=== PATIENT | female | born 1935 | race Caucasian/White ===

== ENCOUNTER 2016-08-07 15:55 | Inpatient (IN) | payer MEDICARE, OTHER ==
[~2016-08-07] VITALS: Ht 160 cm; Wt 56.2 kg
[~2016-08-07 15:55] MED LIST: ASPIRIN 32325 MG/TA1 PO; ASPIRIN 32325 MG/TAB PO; ASPIRIN E.C. 8181 MG PO; CHLORELLA PO; EFFEXOR XR75 MG/CAP PO; ELIQUIS 5MG PO; FORT1000TA PO; HUMALOG PEN100 U/ML SQ; HUMULIN N 10100 U/ML SC; INSLANT SQ; LIPITOR 80MG80 MG PO; OMEGA-3 FISH1000 MG PO; TOPROL XL100 MG PO; TYLENOL 325MG325 MG PO; VENLAFAXINE225 MG PO; ZOLOFT 100MG100 MG PO
[2016-08-07 17:41] VITALS: BP 152/76; PULSE 68; TEMP 98.1
[2016-08-07 19:52] VITALS: BP 128/63; PULSE 95; TEMP 98.5
[2016-08-08] VITALS (7 sets, daily range): BP systolic 123–146; BP diastolic 41–82; PULSE 51–119; TEMP 97.6–98.7
[2016-08-08 08:07] LABS: CALCIUM 8.8 mg/dL (8.4-10.2); POTASSIUM 3.7 mmol/L (3.4-5.0)
[2016-08-08 08:11] LABS: MEAN CELL VOLUME 100 fl (80.0-100.0); MEAN CORPUSCULAR HGB CONC 32 g/dl (33.0-37.0); MEAN PLATELET VOLUME 10.3 fl (7.4-10.4); PLATELET COUNT 142 K/mm3 (130-400); REDCELL DISTRIBUTION WIDTH-CV 13.2 % (11.5-14.5); WHITE BLOOD COUNT 4.2 K/mm3 (4.8-10.8)
[2016-08-08 08:25] LABS: CREATININE, serum 0.84 mg/dL (0.52-1.25)
[2016-08-08 08:27] LABS: HEMATOCRIT 31.9 % (37.0-47.0); HEMOGLOBIN 10.3 g/dl (12.5-16.0); MEAN CORPUSCULAR HEMOGLOBIN 32 pg (27.0-31.0)
[2016-08-08 18:19] LABS: PROLACTIN 11.7 ng/mL (3.0-18.6)
[2016-08-09 03:41] VITALS: BP 145/64; PULSE 77; TEMP 98
[2016-08-09 09:21] VITALS: BP 137/56; PULSE 70; TEMP 98.1
[2016-08-09] MEDS ORDERED: ELIQUIS 5MG PO ×2 (11:53→11:54)
[2017-01-03] MEDS ORDERED: ASPIRIN 81M81 MG/TA2 PO (16:34)
[2017-01-03] MEDS ORDERED: HUMALOG PEN100 U/ML SQ (16:37)
== END 2016-08-09 12:42 | disposition home or self-care (01) | DRG 69 ==
LOC: MEDICAL 15:55
PROVIDERS: Internal Medicine
DX: G45.9 Transient cerebral ischemic attack, unspecified (principal); E43 Unspecified severe protein-calorie malnutrition; I48.91 Unspecified atrial fibrillation; I10 Essential (primary) hypertension; Z66 Do not resuscitate; G47.33 Obstructive sleep apnea (adult) (pediatric); E78.5 Hyperlipidemia, unspecified; R47.81 Slurred speech; Z86.73 Personal history of transient ischemic attack (TIA), and cerebral infarction without residual deficits; Z79.2 Long term (current) use of antibiotics; Z79.4 Long term (current) use of insulin; Z68.21 Body mass index [BMI] 21.0-21.9, adult
CPT/HCPCS: 99223-AI; 99239; G0378; G0379; J1815

== ENCOUNTER 2016-10-24 19:53 | Emergency (ER) | payer MEDICARE ==
[~2016-10-24] VITALS: Ht 160 cm; Wt 54.5 kg
[2016-10-24 19:57] VITALS: TEMP 97.7
[2016-10-24] MEDS ORDERED: ELIQUIS 5MG PO (20:17)
[2016-10-24 21:22] VITALS: BP 118/78; PULSE 84
[2017-01-03] MEDS ORDERED: ASPIRIN 81M81 MG/TA2 PO (16:34)
[2017-01-03] MEDS ORDERED: HUMALOG PEN100 U/ML SQ (16:37)
== END 2016-10-24 21:23 | disposition home or self-care (01) ==
LOC: COL.ER 19:53
DX: S52.591A Other fractures of lower end of right radius, initial encounter for closed fracture (principal); E11.9 Type 2 diabetes mellitus without complications; I10 Essential (primary) hypertension; I25.2 Old myocardial infarction; F32.9 Major depressive disorder, single episode, unspecified; Z79.4 Long term (current) use of insulin; Z79.82 Long term (current) use of aspirin; Z79.84 Long term (current) use of oral hypoglycemic drugs; Z86.73 Personal history of transient ischemic attack (TIA), and cerebral infarction without residual deficits; Z86.69 Personal history of other diseases of the nervous system and sense organs; W18.39XA Other fall on same level, initial encounter; Y93.01 Activity, walking, marching and hiking

== ENCOUNTER 2017-01-04 01:00 | Emergency (ER) | payer MEDICARE ==
[~2017-01-04] VITALS: Ht 160 cm; Wt 54.5 kg
[~2017-01-04 01:00] MED LIST changes: +ASPIRIN 81M81 MG/TA2 PO
[2017-01-04 01:02] VITALS: TEMP 97.1
[2017-01-04 01:49] VITALS: BP 121/64; PULSE 67
== END 2017-01-04 01:49 | disposition home or self-care (01) ==
LOC: COL.ER 01:00
DX: S01.81XA Laceration without foreign body of other part of head, initial encounter (principal); Z79.01 Long term (current) use of anticoagulants; W19.XXXA Unspecified fall, initial encounter; S52.91XD Unspecified fracture of right forearm, subsequent encounter for closed fracture with routine healing; W19.XXXD Unspecified fall, subsequent encounter; Z86.73 Personal history of transient ischemic attack (TIA), and cerebral infarction without residual deficits; E11.9 Type 2 diabetes mellitus without complications; I48.2 Chronic atrial fibrillation; I10 Essential (primary) hypertension; Z79.4 Long term (current) use of insulin; E78.00 Pure hypercholesterolemia, unspecified

== ENCOUNTER 2017-01-09 14:23 | Emergency (ER) | payer MEDICARE ==
[2017-01-09 14:26] VITALS: BP 131/65; PULSE 75; TEMP 97.6
== END 2017-01-09 14:33 | disposition home or self-care (01) ==
LOC: COL.ER 14:23
DX: S01.81XD Laceration without foreign body of other part of head, subsequent encounter (principal); Z79.4 Long term (current) use of insulin; Z79.84 Long term (current) use of oral hypoglycemic drugs; Z79.82 Long term (current) use of aspirin; Z79.01 Long term (current) use of anticoagulants; X58.XXXD Exposure to other specified factors, subsequent encounter

== ENCOUNTER → 2018-02-18 | Outpatient (CLI) | payer MEDICARE ==
[2018-02-18 13:59] LABS: HEMOGLOBIN 12.6 g/dl (12.5-16.0); MEAN CELL VOLUME 98 fl (80.0-100.0); MEAN CORPUSCULAR HEMOGLOBIN 33 pg (27.0-31.0); MEAN CORPUSCULAR HGB CONC 33 g/dl (33.0-37.0); MEAN PLATELET VOLUME 11.2 fl (7.4-10.4); PLATELET COUNT 142 K/mm3 (130-400); RED BLOOD COUNT 3.86 M/mm3 (4.10-5.30)
[2018-02-18 14:09] LABS: ALBUMIN 3.6 gm/dL (3.5-5.0); CALCIUM 8.7 mg/dL (8.4-10.2); CREATININE, serum 0.8 mg/dL (0.52-1.25); POTASSIUM 4.1 mmol/L (3.4-5.0); TOTAL PROTEIN 6.4 gm/dL (6.4-8.2)
[2018-02-18 14:21] LABS: ERYTHROCYTE SEDIMENTATION RATE 6 mm/hr (0-30)
[2018-02-18 14:38] LABS: THYROID STIMULATING HORMONE 0.994 uIU/mL (0.465-4.680)
[2018-02-19 03:15] LABS: FOLATE (FOLIC ACID) 8.4 ng/mL (7.0-31.4)
[2018-02-20 00:58] LABS: RPR (VDRL) Negative (Negative)
[2018-02-20 23:40] LABS: LEVETIRACETAM 28.8 mcg/mL (())
== END ==
LOC: ZCOL.LAB 13:14
PROVIDERS: Psychiatry & Neurology Neurology
DX: F03.90 Unspecified dementia, unspecified severity, without behavioral disturbance, psychotic disturbance, mood disturbance, and anxiety (principal); E11.69 Type 2 diabetes mellitus with other specified complication; E03.9 Hypothyroidism, unspecified; I10 Essential (primary) hypertension; M85.80 Other specified disorders of bone density and structure, unspecified site; G40.209 Localization-related (focal) (partial) symptomatic epilepsy and epileptic syndromes with complex partial seizures, not intractable, without status epilepticus

== ENCOUNTER → 2018-07-30 | Outpatient (CLI) | payer MEDICARE ==
[2018-07-30 14:52] LABS: BASO % 0.4 % (0.0-2.0); EOS # 0.1 (0.0-0.7); EOS % 2.9 % (0-4.0); GRAN # 2.3 (1.4-6.5); GRAN % 51.9 % (42.2-75.2); HEMATOCRIT 38.4 % (37.0-47.0); HEMOGLOBIN 12.7 g/dl (12.5-16.0); LYMPH # 1.7 (1.2-3.4); LYMPH % 37.1 % (20.0-51.0); MEAN CELL VOLUME 95 fl (80.0-100.0); MEAN CORPUSCULAR HEMOGLOBIN 31 pg (27.0-31.0); MEAN CORPUSCULAR HGB CONC 33 g/dl (33.0-37.0); MONO # 0.3 (0.1-0.6); MONO % 7.3 % (1.7-9.3); PLATELET COUNT 136 K/mm3 (130-400); RED BLOOD COUNT 4.05 M/mm3 (4.10-5.30); REDCELL DISTRIBUTION WIDTH-CV 13.2 % (11.5-14.5)
[2018-07-30 14:57] LABS: ALBUMIN 3.4 gm/dL (3.5-5.0); BILIRUBIN,TOTAL 0.5 mg/dL (0.0-1.0); CALCIUM 9.1 mg/dL (8.4-10.2); CHOLESTEROL RISK RATIO 1.7; CREATININE, serum 0.81 (0.52-1.25)
[2018-07-30 15:14] LABS: THYROXINE (T4)-TOTAL 7.8 ug/dL (5.5-11.0)
[2018-07-30 15:27] LABS: THYROID STIMULATING HORMONE 1.48 uIU/mL (0.465-4.680)
== END ==
LOC: ZCOL.LAB 14:22
PROVIDERS: Psychiatry & Neurology Neurology
DX: E03.9 Hypothyroidism, unspecified (principal); I67.9 Cerebrovascular disease, unspecified; E78.5 Hyperlipidemia, unspecified; E11.69 Type 2 diabetes mellitus with other specified complication; G40.209 Localization-related (focal) (partial) symptomatic epilepsy and epileptic syndromes with complex partial seizures, not intractable, without status epilepticus

== ENCOUNTER 2018-08-07 22:01 | Emergency (ER) | payer MEDICARE ==
[2018-08-07 22:05] VITALS: BP 108/62; TEMP 96.5
[2018-08-07 22:37] LABS: BASO % 0.4 % (0.0-2.0); EOS # 0.1 (0.0-0.7); EOS % 2.7 % (0-4.0); GRAN # 2.5 (1.4-6.5); GRAN % 51.5 % (42.2-75.2); HEMATOCRIT 38.5 % (37.0-47.0); HEMOGLOBIN 12.5 g/dl (12.5-16.0); LYMPH # 1.8 (1.2-3.4); MEAN CELL VOLUME 97 fl (80.0-100.0); MEAN CORPUSCULAR HEMOGLOBIN 31 pg (27.0-31.0); MEAN CORPUSCULAR HGB CONC 33 g/dl (33.0-37.0); MEAN PLATELET VOLUME 10.4 fl (7.4-10.4); MONO # 0.4 (0.1-0.6); MONO % 8.2 % (1.7-9.3); PLATELET COUNT 135 K/mm3 (130-400); RED BLOOD COUNT 3.98 M/mm3 (4.10-5.30); REDCELL DISTRIBUTION WIDTH-CV 13.2 % (11.5-14.5)
[2018-08-07] MEDS ORDERED: FOSAMAX 70MG TA70 MG PO (22:40)
[2018-08-07] MEDS ORDERED: ASPIRIN E.C. 8181 MG PO (22:41)
[2018-08-07] MEDS ORDERED: CELEXA40 MG PO (22:42)
[2018-08-07] MEDS ORDERED: DITROPAN XL 5MG5 M1 PO (22:45)
[2018-08-07] MEDS ORDERED: KEPPRA 500MG500 MG PO (22:46)
[2018-08-07] MEDS ORDERED: RAZADYNE 4MG (FO4 MG PO (22:47)
[2018-08-07 22:50] LABS: ALANINE AMINOTRANSFERASE 30 U/L (9-52); ALBUMIN 3.8 gm/dL (3.5-5.0); ALKALINE PHOSPHATASE 60 U/L (50-136); ANION GAP 5 mmol/L (7-16); AST,SGOT 38 U/L (15-37); BILIRUBIN,TOTAL 0.7 mg/dL (0.0-1.0); BLOOD UREA NITROGEN 27 mg/dL (7-17); CALCIUM 8.9 mg/dL (8.4-10.2); CARBON DIOXIDE 32 mmol/L (22-30); CHLORIDE 101 mmol/L (98-107); CREATININE, serum 1.06 (0.52-1.25); GLUCOSE 167 mg/dL (74-106); POTASSIUM 4.2 mmol/L (3.4-5.0); SODIUM 138 mmol/L (137-145); TOTAL PROTEIN 6.8 gm/dL (6.4-8.2)
[2018-08-07 22:55] LABS: ACETAMINOPHEN < 10 ug/mL (10-30); ALCOHOL(ethanol),MEDICAL < 10 mg/dL; SALICYLATE < 1.0 mg/dL
[2018-08-07 23:06] LABS: COLLECTION METHOD CLEAN CATCH
[2018-08-07 23:15] LABS: MUCOUS Present /lpf; PH 5 (5-8); SQUAMOUS EPITHELIAL 0-2 /hpf; URINE APPEARANCE Clear; URINE BACTERIA Rare /hpf; URINE BILIRUBIN Negative (NEGATIVE); URINE BLOOD Negative (NEGATIVE); URINE COLOR Yellow; URINE GLUCOSE 1+ (NEGATIVE); URINE KETONE Trace (NEGATIVE); URINE LEUKOCYTE ESTERASE Trace (NEGATIVE); URINE NITRATE Negative (NEGATIVE); URINE PROTEIN(semi-quant) Negative (NEGATIVE)
[2018-08-07 23:28] LABS: TRICYCLIC ANTIDEPRESS URINE NEGATIVE
[2018-08-08] MEDS ORDERED: MACROBID 1100 MG/CAP PO (01:38)
[2018-08-08 02:15] VITALS: PULSE 55
== END 2018-08-08 02:15 | disposition home or self-care (01) ==
LOC: COL.ER 22:01
PROVIDERS: Nurse Practitioner
DX: R45.851 Suicidal ideations (principal); N39.0 Urinary tract infection, site not specified; F32.9 Major depressive disorder, single episode, unspecified; G40.909 Epilepsy, unspecified, not intractable, without status epilepticus; E11.9 Type 2 diabetes mellitus without complications; I10 Essential (primary) hypertension; F41.9 Anxiety disorder, unspecified; F03.90 Unspecified dementia, unspecified severity, without behavioral disturbance, psychotic disturbance, mood disturbance, and anxiety; I63.9 Cerebral infarction, unspecified; Z79.4 Long term (current) use of insulin; Z79.01 Long term (current) use of anticoagulants; Z79.84 Long term (current) use of oral hypoglycemic drugs; Z79.82 Long term (current) use of aspirin; Z88.4 Allergy status to anesthetic agent
CPT/HCPCS: J7030

== ENCOUNTER 2018-11-09 13:54 | Emergency (ER) | payer MEDICARE, MEDICAID ==
[~2018-11-09] VITALS: Ht 162.6 cm; Wt 63.6 kg
[2018-11-09 13:55] VITALS: TEMP 98.5
[2018-11-09 14:25] LABS: COLLECTION METHOD CATHETER
[2018-11-09 14:26] LABS: BASO % 0.2 % (0.0-2.0); EOS # 0.1 (0.0-0.7); EOS % 0.6 % (0-4.0); GRAN % 77.7 % (42.2-75.2); HEMATOCRIT 41.4 % (37.0-47.0); HEMOGLOBIN 14.3 g/dl (12.5-16.0); LYMPH # 1.2 (1.2-3.4); LYMPH % 13.5 % (20.0-51.0); MEAN CELL VOLUME 95 fl (80.0-100.0); MEAN CORPUSCULAR HEMOGLOBIN 33 pg (27.0-31.0); MEAN CORPUSCULAR HGB CONC 35 g/dl (33.0-37.0); MEAN PLATELET VOLUME 9.7 fl (7.4-10.4); MONO # 0.7 (0.1-0.6); MONO % 7.7 % (1.7-9.3); PLATELET COUNT 149 K/mm3 (130-400); RED BLOOD COUNT 4.35 M/mm3 (4.10-5.30); REDCELL DISTRIBUTION WIDTH-CV 12.9 % (11.5-14.5)
[2018-11-09 14:33] LABS: INR 1.1 (0.8-3.0); PROTHROMBIN TIME 13.2 SECONDS (9.7-12.8)
[2018-11-09 14:33] LABS: MUCOUS Present /lpf; PH 5 (5-8); SQUAMOUS EPITHELIAL 0-2 /hpf; URINE APPEARANCE Clear; URINE BACTERIA None Seen /hpf; URINE BILIRUBIN Negative (NEGATIVE); URINE BLOOD 2+ (NEGATIVE); URINE COLOR Yellow; URINE GLUCOSE Negative (NEGATIVE); URINE KETONE 1+ (NEGATIVE); URINE LEUKOCYTE ESTERASE Negative (NEGATIVE); URINE NITRATE Negative (NEGATIVE); URINE PROTEIN(semi-quant) 2+ (NEGATIVE)
[2018-11-09 14:54] LABS: BILIRUBIN,TOTAL 0.9 mg/dL (0.0-1.0); CALCIUM 9.1 mg/dL (8.4-10.2); CREATININE, serum 0.69 (0.52-1.25); POTASSIUM 3.6 mmol/L (3.4-5.0); TOTAL PROTEIN 7.4 gm/dL (6.4-8.2)
[2018-11-09 15:02] LABS: TROPONIN-I 0.02 ng/mL (0.000-0.035)
[2018-11-09 15:04] LABS: ARTERIAL BLD GAS O2 SATURATION 93.4 % (92-100); ARTERIAL BLD GAS TCO2 CT 28.1; ARTERIAL BLOOD GAS BASE EXCESS 1.5 (-2-2); ARTERIAL BLOOD GAS HCO3 26.7 meq/L (22-26); ARTERIAL BLOOD GAS PCO2 44.1 mmHg (35-45); ARTERIAL BLOOD GAS PO2 70.1 mmHg (80-100)
[2018-11-09 17:22] VITALS: BP 200/90; PULSE 69
== END 2018-11-09 17:25 | disposition home or self-care (01) ==
LOC: COL.ER 13:54
PROVIDERS: Emergency Medicine
DX: R41.82 Altered mental status, unspecified (principal); E11.9 Type 2 diabetes mellitus without complications; I48.91 Unspecified atrial fibrillation; E78.00 Pure hypercholesterolemia, unspecified; Z79.4 Long term (current) use of insulin; Z86.73 Personal history of transient ischemic attack (TIA), and cerebral infarction without residual deficits; Z79.82 Long term (current) use of aspirin; Z79.01 Long term (current) use of anticoagulants
CPT/HCPCS: J7030

== ENCOUNTER → 2018-11-09 | Outpatient (CLI) | payer MEDICARE, MEDICAID ==
[~2018-11-09] MED LIST changes: +CELEXA40 MG PO; +DITROPAN XL 5MG5 M1 PO; +FOSAMAX 70MG TA70 MG PO; +KEPPRA 500MG500 MG PO; +MACROBID 1100 MG/CAP PO; +RAZADYNE 4MG (FO4 MG PO
== END ==
LOC: ZCOL.LAB 13:30
DX: M62.81 Muscle weakness (generalized) (principal)

== ENCOUNTER 2018-11-29 23:56 | Emergency (ER) | payer MEDICARE, MEDICAID ==
[~2018-11-29] VITALS: Ht 165.1 cm; Wt 65.9 kg
[2018-11-29 23:56] VITALS: TEMP 97.7
[2018-11-30] MEDS ORDERED: LEADER CLE17 GM/Dose PO (00:25)
[2018-11-30] MEDS ORDERED: DULCOLAX S10 MG/SUPP RC (00:25)
[2018-11-30] MEDS ORDERED: HUMALOG100 U/ML SQ (00:27)
[2018-11-30] MEDS ORDERED: IMODIUM 2MG CAPS2 MG PO (00:28)
[2018-11-30] MEDS ORDERED: MEGACE ORAL40 MG/ML PO (00:29)
[2018-11-30] MEDS ORDERED: GLUCOPHAGE500 MG/TAB PO (00:30)
[2018-11-30] MEDS ORDERED: ALMACONE 360 M360 ML PO (00:30)
[2018-11-30] MEDS ORDERED: MILK OF MA400 MG/52 (00:30)
[2018-11-30] MEDS ORDERED: RAZADYNE 4MG (FO4 MG PO (00:31)
[2018-11-30] MEDS ORDERED: RISPERDAL 0.5M0.5 MG PO (00:32)
[2018-11-30] MEDS ORDERED: DESYREL 50MG50 MG PO (00:33)
[2018-11-30] MEDS ORDERED: TYLENOL 325MG325 MG PO (00:33)
[2018-11-30 01:58] VITALS: BP 167/92; PULSE 62
== END 2018-11-30 02:09 | disposition home or self-care (01) ==
LOC: COL.ER 23:56
DX: S00.83XA Contusion of other part of head, initial encounter (principal); S99.922A Unspecified injury of left foot, initial encounter; M54.6 Pain in thoracic spine; I10 Essential (primary) hypertension; F03.90 Unspecified dementia, unspecified severity, without behavioral disturbance, psychotic disturbance, mood disturbance, and anxiety; E78.5 Hyperlipidemia, unspecified; E11.9 Type 2 diabetes mellitus without complications; I48.91 Unspecified atrial fibrillation; G40.909 Epilepsy, unspecified, not intractable, without status epilepticus; F32.9 Major depressive disorder, single episode, unspecified; Z86.73 Personal history of transient ischemic attack (TIA), and cerebral infarction without residual deficits; Z79.4 Long term (current) use of insulin; W01.0XXA Fall on same level from slipping, tripping and stumbling without subsequent striking against object, initial encounter; Y92.129 Unspecified place in nursing home as the place of occurrence of the external cause

== ENCOUNTER → 2018-12-16 | Outpatient (CLI) | payer MEDICARE, MEDICAID ==
[~2018-12-16] MED LIST changes: +ALMACONE 360 M360 ML PO; +DESYREL 50MG50 MG PO; +DULCOLAX S10 MG/SUPP RC; +GLUCOPHAGE500 MG/TAB PO; +HUMALOG100 U/ML SQ; +IMODIUM 2MG CAPS2 MG PO; +LEADER CLE17 GM/Dose PO; +MEGACE ORAL40 MG/ML PO; +MILK OF MA400 MG/52; +RISPERDAL 0.5M0.5 MG PO
== END ==
LOC: COL.RAD 09:55
DX: N95.0 Postmenopausal bleeding (principal)

== ENCOUNTER → 2019-06-28 | Outpatient (CLI) | payer MEDICARE, MEDICAID ==
[2019-06-28 11:39] LABS: BASO % 0.6 % (0.0-2.0); EOS # 0.1 (0.0-0.7); EOS % 2.5 % (0-4.0); GRAN # 2.1 (1.4-6.5); GRAN % 58.7 % (42.2-75.2); HEMOGLOBIN 10.8 g/dl (12.5-16.0); LYMPH # 1.1 (1.2-3.4); LYMPH % 30.3 % (20.0-51.0); MEAN CELL VOLUME 97 fl (80.0-100.0); MEAN CORPUSCULAR HEMOGLOBIN 31 pg (27.0-31.0); MEAN CORPUSCULAR HGB CONC 32 g/dl (33.0-37.0); MEAN PLATELET VOLUME 10.1 fl (7.4-10.4); MONO # 0.3 (0.1-0.6); MONO % 7.6 % (1.7-9.3); PLATELET COUNT 191 K/mm3 (130-400); RED BLOOD COUNT 3.53 M/mm3 (4.10-5.30); REDCELL DISTRIBUTION WIDTH-CV 12.7 % (11.5-14.5)
[2019-06-28 11:41] LABS: HEMATOCRIT 34.1 % (37.0-47.0)
[2019-06-28 11:42] LABS: BILIRUBIN,TOTAL 0.3 mg/dL (0.0-1.0); CALCIUM 8.8 mg/dL (8.4-10.2); CHOLESTEROL RISK RATIO 4.3; CREATININE, serum 0.67 (0.52-1.25); POTASSIUM 4.4 mmol/L (3.4-5.0); TOTAL PROTEIN 5.7 gm/dL (6.4-8.2)
[2019-06-28 12:12] LABS: TSH w REFLEX 2.47 uIU/mL (0.465-4.680)
== END ==
LOC: ZCOL.LAB 10:58
PROVIDERS: Family Medicine
DX: E78.5 Hyperlipidemia, unspecified (principal); E11.69 Type 2 diabetes mellitus with other specified complication

== ENCOUNTER → 2019-11-07 | Outpatient (CLI) | payer MEDICAID | LOC: ZCOL.LAB 17:08 | DX: R50.81 Fever presenting with conditions classified elsewhere (principal); Z20.828 Contact with and (suspected) exposure to other viral communicable diseases ==

== ENCOUNTER → 2019-11-17 | Outpatient (CLI) | payer MEDICAID | LOC: ZCOL.LAB 17:48 | DX: R50.9 Fever, unspecified (principal); Z20.828 Contact with and (suspected) exposure to other viral communicable diseases ==

== ENCOUNTER → 2020-09-20 | Outpatient (CLI) | payer MEDICARE, MEDICAID | LOC: ZCOL.LAB 14:50 | DX: E11.69 Type 2 diabetes mellitus with other specified complication (principal) ==

== ENCOUNTER → 2020-12-01 | Outpatient (CLI) | payer MEDICARE, MEDICAID ==
[2020-12-01 10:42] LABS: BASO % 0.3 % (0.0-2.0); EOS # 0.2 (0.0-0.7); EOS % 2.6 % (0-4.0); GRAN # 4.2 (1.4-6.5); GRAN % 72.3 % (42.2-75.2); HEMATOCRIT 39.9 % (37.0-47.0); HEMOGLOBIN 13.3 g/dl (12.5-16.0); LYMPH % 17.4 % (20.0-51.0); MEAN CELL VOLUME 95 fl (80.0-100.0); MEAN CORPUSCULAR HEMOGLOBIN 32 pg (27.0-31.0); MEAN CORPUSCULAR HGB CONC 33 g/dl (33.0-37.0); MEAN PLATELET VOLUME 11.1 fl (7.4-10.4); MONO # 0.4 (0.1-0.6); MONO % 7.1 % (1.7-9.3); PLATELET COUNT 166 K/mm3 (130-400); REDCELL DISTRIBUTION WIDTH-CV 12.7 % (11.5-14.5)
[2020-12-01 11:01] LABS: CALCIUM 8.7 mg/dL (8.4-10.2); CREATININE, serum 0.77 (0.52-1.25); POTASSIUM 4.1 mmol/L (3.4-5.0)
== END ==
LOC: ZCOL.LAB 10:20
PROVIDERS: Family Medicine
DX: E46 Unspecified protein-calorie malnutrition (principal); E11.69 Type 2 diabetes mellitus with other specified complication

== ENCOUNTER → 2021-03-26 | Outpatient (CLI) | payer MEDICARE, MEDICAID | LOC: ZCOL.LAB 10:37 | DX: E11.69 Type 2 diabetes mellitus with other specified complication (principal) ==

== ENCOUNTER → 2021-03-29 | Outpatient (CLI) | payer MEDICARE, MEDICAID | LOC: ZCOL.LAB 09:06 | DX: G40.209 Localization-related (focal) (partial) symptomatic epilepsy and epileptic syndromes with complex partial seizures, not intractable, without status epilepticus (principal) ==

== ENCOUNTER → 2021-03-31 | Outpatient (CLI) | payer MEDICARE, MEDICAID | LOC: ZCOL.LAB 17:58 | DX: G40.209 Localization-related (focal) (partial) symptomatic epilepsy and epileptic syndromes with complex partial seizures, not intractable, without status epilepticus (principal) ==